=== PATIENT | female | born 1950 | race African-American/Black ===

== ENCOUNTER → 2017-11-05 | Outpatient (CLI) | payer OTHER ==
[~2017-11-05] MED LIST: ASPIRIN81 M2 PO; BENTYL10 MG PO; DIGESTIVE ADVA1 EAC1 PO; FLEXERIL10 MG PO; GLUCOPHAGE500 MG PO; LISINOPRIL2.5 MG PO; METFORMIN HCL500 MG PO; NAPROSYN500 MG PO; NORVASC2.5 MG PO; PRILOSEC20 MG PO; TRAMADOL HCL50 MG PO; ULTRAM50 MG PO; ZOFRAN ODT4 MG PO
== END | disposition home or self-care (01) ==
LOC: RAD 09:39
DX: N83.201 Unspecified ovarian cyst, right side (principal); N32.3 Diverticulum of bladder; Z90.710 Acquired absence of both cervix and uterus
CPT/HCPCS: 76856